=== PATIENT | female | born 1975 | race Caucasian/White ===

== ENCOUNTER 2018-02-21 06:56 | Emergency (ER) | payer BC ==
--- OUTSIDE RECORDS SUMMARY | 2018-02-21 06:59 | XMS REPORT ---
:1975 Author Organization [facility] Address [address] [place] [address] Dr. Black[address] [place] [id number] Care Team Providers Name Role Phone Unavailable Unavailable Unavailable Payers Payer Name Policy Type Policy Number Effective Date Expiration Date Problems This patient has no known problems. Allergies, Adverse Reactions, Alerts This patient has no known allergies or adverse reactions. Medications This patient has no known medications.
--- OUTSIDE RECORDS SUMMARY | 2018-02-21 06:59 | XMS REPORT ---
:1975 Author Organization [employer] Care Team Providers Name Role Phone Oly Matthews Provider Role Unavailable Allergies, Adverse Reactions, Alerts Substance Reaction Event Type N.K.D.A. Info Not Available Non Drug Allergy Problems Problem Type Condition Code Onset Dates Condition Status Assessment History of heart murmur in Z86.79 Active childhood Assessment Elevated BP without diagnosis of R03.0 Active hypertension Assessment Tachycardia R00.0 Active Assessment Lipid screening Z13.220 Active Assessment Liver lesion K76.9 Active Problem Liver lesion K76.9 Active Problem Elevated BP without diagnosis of R03.0 Active hypertension Problem Tachycardia R00.0 Active Assessment Uncontrolled type 2 diabetes E11.65 Active mellitus with hyperglycemia Problem History of heart murmur in Z86.79 Active childhood Problem Uncontrolled type 2 diabetes E11.65 Active mellitus with hyperglycemia Medications Medication Code Code Instructions Start End Status Dosage System Date Date [facility] 99642567115 10mg Orally Kinsey Active 1 tablet Once daily 2018 Trulicity [facility] 27637989633 1.5mg/0.5ml SQ Active 1 injection once a week Metformin HCl ND 86075446130 1000 MG Orally Active 1 tablet Once a day with a meal Lyrica NDC 80130081147 75 MG Orally Active 1 capsule Once a day Blood Glucose NDC 0 as directed Feb 12, Active as directed Test Strip Test BS once 2018 (DISPENSE daily BLOOD GLUCOSE TEST STRIPS FORMULARY TO INSURANCE) Blood Glucose NDC 0 as directed Feb 12, Active as directed Monitor Test BS once 2018 (DISPENSE daily BLOOD GLUCOSE MONITOR FORMULARY TO INSURANCE) Lancets ND 04817019883 - as directed Feb 12, Active as directed Test BS once 2018 (dispense daily lancets formulary to insurance) Gabapentin [facility] [address]-60 100 MG Orally Active 1 capsule at bedtime Results No Known Results Summary Purpose eClinicalWorks Submission
[2018-02-21 08:51] LABS: Absolute Lymphocytes (CBC) 2.4 K/uL (0.7-4.9); Absolute Monocytes 0.6 K/uL (0.1-1.3); Absolute Neutrophil 6.4 K/uL (1.8-8.0); Basophils % 0.8 % (0-1.3); Eosinophils % 1.5 % (0-4.4); Hematocrit 41.3 % (36.0-45.0); Lymphocytes % 25.2 % (15.3-44.8); MCV 88.7 fL (80-100); MPV 9.3 fL (7.6-11.3); RBC Red Blood Cell Count 4.65 M/uL (3.86-4.86)
[2018-02-21 08:56] LABS: ALT/SGPT 22 U/L (12-78); AST/SGOT 10 U/L (15-37); Albumin 3.9 g/dL (3.4-5.0); Alkaline Phosphatase 43 U/L (45-117); BUN Blood Urea Nitrogen 15 mg/dL (7-18); Bicarbonate 23 mmol/L (21-32); Bilirubin Direct 0.1 mg/dL (0-0.2); Bilirubin Total 0.4 mg/dL (0.2-1.0); Glucose Level 226 mg/dL (74-106); Lipase 221 U/L (73-393); Protein, Total 7.4 g/dL (6.4-8.2); Sodium Level 137 mmol/L (136-145)
[2018-02-21 09:43] LABS: Urine Blood TRACE (NEG); Urine Glucose 2+ (NEG); Urine Protein NEGATIVE (NEG); Urine Specific Gravity 1.015 (1.005-1.030); Urine pH 5.5 (5.0-7.0)
--- NOTE | 2018-02-21 10:00 | RAD REPORT ---
EXAM DESCRIPTION: CT - Abdomen Pelvis W Contrast - 02/21/2018 9:29 am CLINICAL HISTORY: Abdominal pain, right lower quadrant pain COMPARISON: February 2017 imaging TECHNIQUE: Biphasic, helical CT imaging of the abdomen and pelvis was performed following 100 ml non -ionic IV contrast. Oral contrast was given. All CT scans are performed using dose optimization technique as appropriate and may include automated exposure control or mA/KV adjustment according to patient size. FINDINGS: No suspicious findings in the lung bases. The liver, spleen, and pancreas show no suspicious findings. Cholecystectomy clips are present. No bi liary tree dilatation. Symmetric renal function is seen with no hydronephrosis or suspicious renal mass. No pyelonephritis o r acute renal parenchymal process. No urinary bladder abnormality. No acute uterine finding. Small ut erine fibroids are identified similar to comparison. IUD has been placed since the prior study. No ac chris ovarian process. No dilated bowel loops or bowel wall thickening. No appendicitis. Large amount of stool is present fi lling but not dilating the entirety of the colon. No free air, free fluid or inflammatory stranding. A few small mesenteric lymph nodes are present. A very small fat only umbilical hernia is present. No mass or bulky lymphadenopathy. No adrenal abnormality. No suspicious bony findings. IMPRESSION: No appendicitis or other acute finding in the right lower quadrant. Patient has a large amount of stool filling but not dilating the entirety of the colon. Small nonspe cific mesenteric lymph nodes are present. No acute GI process otherwise noted. 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 Cholecystectomy changes.
--- NOTE | 2018-02-21 10:28 | ER ---
Nurse's Notes [facility] Name: Rachel Arroyo Age: 42 yrs Sex: Female : 1975 Arrival Date: 02/21/2018 Time: 06:58 Bed 13 Private MD: Oly Matthews Diagnosis: Radiculopathy, lumbar region Presentation: 02/21 07:08 Presenting complaint: Patient states: lower back pain radiating down right leg that aa5 began on Friday. Pt also reports numbness to funmilayo little fingers and ring fingers. Pt states "I don't know if it's because of the way I sleep or because I sit a lot at work". Transition of care: patient was not received from another setting of care. Onset of symptoms was January 2018. Risk Assessment: Do you want to hurt yourself or someone else? Patient reports no desire to harm self or others. Initial Sepsis Screen: Does the patient meet any 2 criteria? No. Patient's initial sepsis screen is negative. Does the patient have a suspected source of infection? No. Patient's initial sepsis screen is negative. Care prior to arrival: None. 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 - Social history:: Smoking status: Patient/guardian denies using tobacco. - Ebola Screening: : No symptoms or risks identified at this time. Screenin:10 Abuse screen: Denies threats or abuse. Nutritional screening: No deficits noted. aa5 Tuberculosis screening: No symptoms or risk factors identified. Fall Risk None identified. Assessment: 07:10 General: Appears uncomfortable, Behavior is calm, cooperative. Pain: Complains of pain aa5 in left low back and right low back Pain radiates to right leg Pain currently is 8 out of 10 on a pain scale. Quality of pain is described as sharp, shooting, Pain began 5 days ago. Neuro: Level of Consciousness is awake, alert, obeys commands, Oriented to person, place, time, situation. Cardiovascular: Heart tones S1 S2 present Rhythm is regular. Respiratory: Airway is patent Respiratory effort is even, unlabored, Respiratory pattern is regular, symmetrical. GI: No signs and/or symptoms were reported involving the gastrointestinal system. : No signs and/or symptoms were reported regarding the genitourinary system. Denies burning with urination, inability to void, urinary frequency, urgency. EENT: No signs and/or symptoms were reported regarding the EENT system. Derm: Skin is pink, warm \\T\\ dry. Musculoskeletal: Range of motion: intact in all extremities, Pt states "my fingers were a numb earlier today but now they are not". 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 Pt states "maybe is the way I slept or something". 09:21 Reassessment: pt wheeled to CT via wheelchair. em 10:22 Reassessment: Patient appears in no apparent distress at this time. Patient and/or em family updated on plan of care and expected duration. Pain level reassessed. Patient is alert, oriented x 3, equal unlabored respirations, skin warm/dry/pink. 10:40 Reassessment: Patient is alert, oriented x 3, equal unlabored respirations, skin aa5 warm/dry/pink. Vital Signs: 07:10 BP 126 / 83; Pulse 94; Resp 16 S; Temp 97.4(TE); Pulse Ox 98% on R/A; Weight 74.84 kg aa5 (R); Height 5 ft. 6 in. (167.64 cm) (R); Pain 8/10; 07:10 Body Mass Index 26.63 (74.84 kg, 167.64 cm) aa5 ED Course: 06:58 Patient arrived in ED. am2 06:59 Oly Matthews MD is Private Physician. am2 07:09 Triage completed. aa5 07:09 Arm band placed on. aa5 07:09 Patient has correct armband on for positive identification. Bed in low position. Call aa5 light in reach. Side rails up X 1. 07:17 Himanshu Daniel LVN is Primary Nurse. em 07:18 Martin Bragg PA is PHCP. jr8 07:18 Tremaine Irwin MD is Attending Physician. jr8 09:02 Initial lab(s) drawn, by me, sent to lab. Urine collected: clean catch specimen, clear. mh5 Inserted saline lock: 22 gauge in right antecubital area, using aseptic technique. Blood collected. 09:03 Placed in gown. Warm blanket given. Pulse ox on. NIBP on. 5 09:03 Urine --Ancillary Sent. 5 09:03 Urine Dipstick-Ancillary Sent. 5 09:04 Urine --Ancillary (enter results) Sent. mh5 09:04 Urine Dipstick--Ancillary (enter results) Sent. 5 09:28 CT completed. Patient moved to CT via wheelchair. Patient moved back from CT. cw1 09:30 CT Abd/Pelvis - W/Contrast In Process Unspecified. EDMS 10:27 Oly Matthews MD is Referral Physician. jr8 10:40 No provider procedures requiring assistance completed. aa5 10:40 IV discontinued, intact, bleeding controlled, No redness/swelling at site. Pressure aa5 dressing applied. Administered Medications: No medications were administered Outcome: 10:28 Discharge ordered by . jr8 10:40 Discharged to home ambulatory. aa5 10:40 Condition: stable 10:40 Discharge instructions given to patient, Instructed on discharge instructions, follow up and referral plans. medication usage, Demonstrated understanding of instructions, follow-up care, medications, Prescriptions given X 3. 10:42 Patient left the ED. em Signatures: Dispatcher [employer] EDOH Himanshu Daniel, MACHINE HOOP MAKER MACHINE HOOP MAKER Mary Sandoval, RN RN aa5 Rachel Gonzalez cw1 Martin Bragg PA PA jr8 Martinez, Maria Yana Mcclure 2
--- NOTE | 2018-02-21 10:28 | EDPHYS ---
Physician Documentation [facility] Name: Rachel Arroyo Age: 42 yrs Sex: Female : 1975 Arrival Date: 02/21/2018 Time: 06:58 Bed 13 Private MD: Oly Matthews ED Physician Tremaine Irwin HPI: 02/21 09:53 This 42 yrs old Female presents to ER via Ambulatory with complaints of Low jr8 Back Pain - rad to leg, Numbness - fingers. 09:53 The patient presents with pain that is acute, with no known mechanism of injury. The jr8 symptoms are located in the low back. radiation down right leg. Onset: The symptoms/episode began/occurred acutely, yesterday. Modifying factors: The patient symptoms are alleviated by nothing, the patient symptoms are aggravated by any movement. Associated signs and symptoms: The patient has no apparent associated signs or symptoms. Severity of symptoms: At their worst the symptoms were mild, in the emergency department the symptoms are unchanged. The patient has not experienced similar symptoms in the past. The patient has not recently seen a physician. 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 - Social history:: Smoking status: Patient/guardian denies using tobacco. - Ebola Screening: : No symptoms or risks identified at this time. ROS: 09:53 Eyes: Negative for injury, pain, redness, and discharge, ENT: Negative for injury, jr8 pain, and discharge, Neck: Negative for injury, pain, and swelling, Cardiovascular: Negative for chest pain, palpitations, and edema, Respiratory: Negative for shortness of breath, cough, wheezing, and pleuritic chest pain, Abdomen/GI: Negative for abdominal pain, nausea, vomiting, diarrhea, and constipation, MS/Extremity: Negative for injury and deformity, Skin: Negative for injury, rash, and discoloration, Neuro: Negative for headache, weakness, numbness, tingling, and seizure. 09:53 Back: Positive for pain at rest, pain with movement, radiated pain. Exam: 09:53 Eyes: Pupils equal round and reactive to light, extra-ocular motions intact. Lids and jr8 lashes normal. Conjunctiva and sclera are non-icteric and not injected. Cornea within normal limits. Periorbital areas with no swelling, redness, or edema. ENT: Nares patent. No nasal discharge, no septal abnormalities noted. Tympanic membranes are normal and external auditory canals are clear. Oropharynx with no redness, swelling, or masses, exudates, or evidence of obstruction, uvula midline. Mucous membranes moist. Neck: Trachea midline, no thyromegaly or masses palpated, and no cervical lymphadenopathy. Supple, full range of motion without nuchal rigidity, or vertebral point tenderness. No Meningismus. Cardiovascular: Regular rate and rhythm with a normal S1 and S2. No gallops, murmurs, or rubs. Normal PMI, no JVD. No pulse deficits. Respiratory: Lungs have equal breath sounds bilaterally, clear to auscultation and percussion. No rales, rhonchi or wheezes noted. No increased work of breathing, no retractions or nasal flaring. Skin: Warm, dry with normal turgor. Normal color with no rashes, no lesions, and no evidence of cellulitis. MS/ Extremity: Pulses equal, no cyanosis. Neurovascular intact. Full, normal range of motion. Neuro: Awake and alert, GCS 15, oriented to person, place, time, and situation. Cranial nerves II-XII grossly intact. Motor strength 5/5 in all extremities. Sensory grossly intact. Cerebellar exam normal. Normal gait. 09:53 Abdomen/GI: Inspection: abdomen appears normal, Bowel sounds: active, all quadrants, Palpation: soft, in all quadrants, moderate abdominal tenderness, in the anterior aspect of right lateral abdomen and right lower quadrant, mass, is not appreciated, rebound tenderness, is not appreciated, voluntary guarding, is not appreciated, involuntary guarding, is not appreciated, no appreciated organomegaly, Indicators: McBurney's point is tender, Stern's sign is negative, Rovsing's sign is negative, Obturator sign is negative, Liver: no appreciated palpable abnormalities, tenderness, is not appreciated. Vital Signs: 07:10 BP 126 / 83; Pulse 94; Resp 16 S; Temp 97.4(TE); Pulse Ox 98% on R/A; Weight 74.84 kg aa5 (R); Height 5 ft. 6 in. (167.64 cm) (R); Pain 12/05; 07:10 Body Mass Index 26.63 (74.84 kg, 167.64 cm) aa5 MDM: 07:18 Patient medically screened. jr8 Data reviewed: vital signs, nurses notes, lab test result(s), radiologic studies, CT jr8 scan. Data interpreted: Pulse oximetry: on room air is 98 %. Interpretation: normal. Counseling: I had a detailed discussion with the patient and/or guardian regarding: the historical points, exam findings, and any diagnostic results supporting the discharge/admit diagnosis, lab results, radiology results, the need for outpatient follow up, a family practitioner, to return to the emergency department if symptoms worsen or persist or if there are any questions or concerns that arise at home. : Differential diagnosis: strain, fracture, sciatica, Herniated disc UTI, appendicitis, jr8 pyelonephritis. 02/21 07:39 Order name: Basic Metabolic Panel; Complete Time: 08:57 jr8 02/21 07:39 Order name: CBC with Diff; Complete Time: 09:01 jr8 02/21 07:39 Order name: Creatinine for Radiology; Complete Time: 08:57 jr8 02/21 07:39 Order name: Hepatic Function; Complete Time: 08:57 jr8 02/21 07:39 Order name: Lipase; Complete Time: 08:57 jr8 02/21 08:29 Order name: Urine Dipstick--Ancillary (enter results) eb 02/21 07:39 Order name: IV Saline Lock; Complete Time: 09:20 jr8 02/21 07:39 Order name: Labs collected and sent; Complete Time: 09:20 jr8 02/21 07:39 Order name: Urine Test (obtain specimen); Complete Time: 09:04 jr8 02/21 07:39 Order name: Urine Dipstick-Ancillary (obtain specimen); Complete Time: 09:04 jr8 02/21 08:29 Order name: Urine --Ancillary (enter results) eb 02/21 08:30 Order name: Urine Dipstick-Ancillary; Complete Time: 09:53 EDMS 02/21 08:30 Order name: Urine --Ancillary; Complete Time: 09:53 EDMS 02/21 08:58 Order name: CT Abd/Pelvis - W/Contrast; Complete Time: 10:25 jr8 Administered Medications: No medications were administered Disposition: 18:01 Co-signature as Attending Physician, Tremaine Irwin MD. Disposition: 02/21/18 10:28 Discharged to Home. Impression: Radiculopathy, lumbar region. - Condition is Stable. - Discharge Instructions: Lumbosacral Radiculopathy, Back Exercises, [id number]. - Prescriptions for Ibuprofen 800 mg Oral Tablet - take 1 tablet by ORAL route every 12 hours As needed take with food; 20 tablet. Cyclobenzaprine 10 mg Oral Tablet - take 1 tablet by ORAL route every 8 hours As needed; 30 tablet. Tramadol 50 mg Oral Tablet - take 1 tablet by ORAL route every 8 hours as needed; 12 tablet. - Medication Reconciliation Form, Thank You Letter, Antibiotic Education, Prescription Opioid Use form. - Follow up: Oly Matthews MD; When: 5 - 6 days; Reason: Recheck today's complaints, Continuance of care, Re-evaluation by your physician. - Problem is new. - Symptoms have improved. Signatures: Dispatcher [employer] EDTN Himanshu Daniel, IMPACT RETAIL SERVICE MERCHANDISER IMPACT RETAIL SERVICE MERCHANDISER Mary Archer, RN RN aa5 Martin Bragg PA PA jr8 Tremaine Irwin MD MD Corrections: (The following items were deleted from the chart) 10:42 10:28 02/21/2018 10:28 Discharged to Home. Impression: Radiculopathy, lumbar region. em Condition is Stable. Forms are Medication Reconciliation Form, Thank You Letter, Antibiotic Education, Prescription Opioid Use. Follow up: Oly Matthews; When: 5 - 6 days; Reason: Recheck today's complaints, Continuance of care, Re-evaluation by your physician. Problem is new. Symptoms have improved. jr8
== END 2018-02-21 10:42 | disposition home or self-care (01) ==
LOC: ER 06:56
DX: M54.16 Radiculopathy, lumbar region (principal); I10 Essential (primary) hypertension
CPT/HCPCS: 36415; 74177; 80048; 80076; 81003; 81025; 83690; 85025; 99284; Q9967

== ENCOUNTER 2020-12-13 15:57 | Emergency (ER) | payer BC ==
--- OUTSIDE RECORDS SUMMARY | 2020-12-13 16:00 | XMS REPORT | Continuity of Care Document ---
:1975 Author Organization [facility] t Address [address] [place] [address] Care Team Providers Name Role Phone Asked, Pcp Primary Care Physician Unavailable Doctor Unassigned, Name Attending Clinician Unavailable Isra PENA SHyun Attending Clinician Fannie López Attending Clinician Payers Payer Name Policy Type Policy Effective Date Expiration Date Sour ce Number [id number] OUT OF [id number] 2018 [facility] 00:00[facility]00 [facility] 79 2018-Pre sentPPO Problems Condition Condition Condition Status Onset Resolution Last Treating Co mments Source Name Details Category Date Date Treatment Clinician Date Hyperlipid Hyperlipid Problem Active M [facility] emia emia 2-14 da 00:00: Medical 00 Group Essential Essential Problem Active [facility] hypertensi Hypertensi 2-14 da on on 00:00: Medical 00 Group Type 2 Type 2 Problem Active [facility] diabetes Diabetes da mellitus [facility] Acute Acute Problem Active [facility] bronchitis Bronchitis [facility] Ankle pain Ankle Pain Problem Active [facility] Fatigue Fatigue Problem Active [facility] History of History of Problem Active [facility] murmur in murmur in Alfredo juan childhood childhood l [facility] Elevated Elevated Problem Active [facility] BP without BP without Natalie kes - diagnosis diagnosis Alfredo juan of of l hypertensi hypertensi Ou tpati on on ent Clinics Tachycardi Tachycardi Problem Active [facility] Liver Liver Problem Active [facility] lesion lesion [facility] Uncontroll Uncontroll Diagnosis Active [facility] ed type 2 ed type 2 Luke s - diabetes diabetes Memori a mellitus mellitus l with with Outpati hyperglyce hyperglyce en t [facility] Hyponatrem Hyponatrem Problem Active [facility] ia ia [facility] Difficulty Difficulty Problem Active [facility] sleeping sleeping [facility] Hyperlipid Hyperlipid Problem Active C [facility] emia, emia, [facility] - unspecifie unspecifie Me moria d d l hyperlipid hyperlipid Ou tpati emia type emia type ent Clinics Left leg Left leg Problem Active [facility] Change in Change in Problem Active [facility] bowel bowel [facility] - habits habits [facility]oria l [facility] Left leg Left leg Problem Active [facility] swelling swelling [facility] Essential Essential Problem Active [facility] hypertensi hypertensi Natalie kes - on on [facility]oria l [facility] Abdominal Abdominal Problem Active [facility] pain, pain, [facility] - unspecifie unspecifie Me moria d d l abdominal abdominal Outp ati location location ent Clinics Allergies, Adverse Reactions, Alerts Allergy Allergy Status Severity Reaction(s) Onset Inactive Treating Comm ents Source Name Type Date Date Clinician Gabapent Allergy Active [facility] Lyrica Allergy Active [facility] Social History Social Habit Start Date Stop Date Quantity Comments Source Sex Assigned At [birth year] [facility] 00:00:00 00:00:00 Smoking Status Start Date Stop Date Source Unknown if ever smoked [facility] Never Smoker [facility] Medications Ordered Filled Start Stop Current Ordering Indication Dosage Frequency Signature Comments Components Source Medication Medication Date Date Medication? Clinician (SIG) Name Name GlipiZIDE GlipiZIDE 2018- Yes Oly [address] [facility]24 [facility] - 00:[facility]: Mem[facility] 00 l Outpati ent Clinics atorvastati atorvastati No 1 Q1D atorvastat [facility] n 10 mg n 10 mg in 10 mg da tablet Take tablet Take tablet Medical 1 tablet 1 tablet Take 1 Group every day every day tablet by oral by oral every day route. route. by oral route. glipizide glipizide No 1 Q1D glipizide [facility] 10 mg 10 mg 10 mg da tablet Take tablet Take tablet Medical 1 tablet 1 tablet Take 1 Group every day every day tablet by oral by oral every day route. route. by oral route. metformin metformin No 1 Q1D metformin [facility] 1,000 mg 1,000 mg 1,000 mg da tablet Take tablet Take tablet Medical 1 tablet 1 tablet Take 1 Group every day every day tablet by oral by oral every day route. route. by oral route. norethindro norethindro No 2 BID norethindr [place] ne 5 mg ne 5 mg one 5 mg da tablet Take tablet Take tablet Medical 2 tablets 2 tablets Take 2 [place] up twice a day twice a day tablets by oral by oral twice a route. route. day by oral route. pantoprazol pantoprazol No 1 Q1D pantoprazo [place] e 40 mg e 40 mg le 40 mg da tablet,shiva tablet,shiva tablet,del Medical yed release yed release ayed G roup Take 1 Take 1 release tablet tablet Take 1 every day every day tablet by oral by oral every day route. route. by oral route. Immunizations Ordered Immunization Filled Immunization Date Status Commen ts Source Name Name pneumococcal pneumococcal 2016-08-22 Completed Queenie polysaccharide PPV23 polysaccharide PPV23 11:04:00 Medical Group Vital Signs Vital Name Observation Time Observation Value Comments Source BP Diastolic 2018-07-07 00:00:00 89 mm[Hg] [facility] Height 2018-07-07 00:00:00 66.5 [in_i] [facility] BMI (Body Mass 2018-07-07 00:00:00 25.8 kg/m2 [facility] Group BP Systolic 2018-07-07 00:00:00 131 mm[Hg] [facility] Body Weight 2018-07-07 00:00:00 2599 [oz_av] [facility] Procedures Procedure Date / Time Performing Clinician Source Performed CT ABD/PELVIC EXTERNAL 2020-05-01 01:00:[address] [facility] STUDY Cholecystectomy 2017-03-03 00:00:00 [facility] Tubal Ligation [facility] Plan of Care Planned Activity Planned Date Details Comments Source Diagnostic Test 2018-07-07 rapid flu (A+B) [code [facility] Pending 00:00:00 = rapid flu (A+B)] Group Future Scheduled Test COVID-19 VACCINE (1) [facility] [code = COVID-19 VACCINE (1)] Future Scheduled Test Hepatitis C screening [facility] (procedure) [code = 956214576] Future Scheduled Test Screening for [facility] malignant neoplasm of cervix (procedure) [code = 045533182] Future Scheduled Test INFLUENZA VACCINE [facility] [code = INFLUENZA VACCINE] Future Scheduled Test DIABETES: RETINAL EYE [facility] EXAM [code = DIABETES: RETINAL EYE EXAM] Future Scheduled Test DIABETIC FOOT EXAM [facility] [code = DIABETIC FOOT EXAM] Future Scheduled Test URINE MICROALBUMIN [facility] [code = URINE MICROALBUMIN] Instructions [facility] Encounters Start End Encounter Admission Attending Care Care Encounter Source Date/Time Date/Time Type Type Clinicians Facility Department ID 2020-11-16 2020-11-16 Orders Doctor NICHELLE [id number] 00:00:00 00:00:00 Only Unassigned, ALLIE [id number] [place] [facility] [id number] [id number] 2020-07-14 2020-07-14 Travel 1.2.840.1 [id number] Methodi 00:00:00 00:00:[address] 3.430.2.7 0.2.7.3.698 Ho spita .3.860077 084.8 l .8 2020-07-06 2020-07-06 Travel 1.2.840.1 [id number] [facility] 00:00:00 00:00:[address] 3.430.2.7 0.2.7.3.698 Ho spita .3.677636 084.8 l .8 2020-07-06 2020-07-06 Transcribe [facility], 1.2.840.1 [id number] Methodi 00:00:00 00:00:00 Orders Mehrdad Ley [id number] 3.430.2.7 Hospit a .3.541438 l .8 2020-06-16 2020-06-16 [facility], 12.840.1 [id number] Methodi 11:22:06 23:59:00 Encounter Mehrdad Ley [id number] 3.430.2.7 Hospit a .3.952796 l .8 2020-06-16 2020-06-16 Outpatient [facility] [id number] [address] [place] [address] 00:00:00 00:00:[address] 2020-04-30 2020-04-30 Emergency [place] [id number] 17:55:00 20:37:00 David Kimball 350.1.13.10 [place] 4.2.7.2.686 [place] [id number] 2018-10-07 2018-10-07 [facility] [id number] 11:03:00 11:03:00 t [facility] 2018-09-09 2018-09-09 [facility] [id number] 08:44:00 08:44:00 t [facility] Medicine Outpati ent Clinics 2018-09-04 2018-09-04 [facility] [id number] 11:43:00 11:43:00 t [facility] Outpati ent Clinics 2018-08-17 2018-08-17 [facility] [id number] 08:38:00 08:38:[address] [facility] Medicine Outpati ent Clinics 2018-07-07 2018-07-07 Susan [facility] [place] - [id number] M haydengor 00:00:00 00:00:00 Discovery rylee Hernandez PSYCHIATRIC MENTAL HEALTH NURSE: [address] [facility] [place], [place] - [address], [facility], [place] [address] , Ph. 2018-05-25 2018-05-25 [facility] [id number] 08:20:00 08:20:[address] [facility] Medicine Outpati ent Clinics 2018-05-21 2018-05-21 [facility] [id number] 08:45:00 08:45:[address] [facility] Medicine Outpati ent Clinics 2018-02-12 2018-02-12 [facility] [id number] 15:00:00 15:00:00 [facility] Outpati ent Clinics Results Test Description Test Time Test Comments Results Result Sour e Comments CT Abd/Pelvic 2020-06-16 This exam was not Meth odist External Study 18:02:37 acquired at a [facility] facility and has not been interpreted by a [facility] Provider. The exam was imported into our imaging system.
[2020-12-13 16:41] LABS: Absolute Lymphocytes (CBC) 2.6 K/uL (0.7-4.9); Basophils % 0.2 % (0-1.3); Hematocrit 43.2 % (36.0-45.0); Lymphocytes % 31.1 % (15.3-44.8); MPV 8.6 fL (7.6-11.3); RBC Red Blood Cell Count 4.71 M/uL (3.86-4.86)
[2020-12-13 16:56] LABS: BUN Blood Urea Nitrogen 18 mg/dL (7-18); Bicarbonate 24 mmol/L (21-32); Glucose Level 129 mg/dL (74-106); Potassium 3.8 mmol/L (3.5-5.1); Sodium Level 135 mmol/L (136-145)
--- NOTE | 2020-12-13 17:08 | ER ---
Nurse's Notes [facility] Name: Rachel Arroyo Age: 45 yrs Sex: Female : 1975 Arrival Date: 12/13/2020 Time: 15:59 Bed Waiting Private MD: Diagnosis: Hyperglycemia, unspecified Presentation: 12/13 16:06 Chief complaint: Patient states: abd pain and fatigue x 1 month. Pt's PCP told her that ss her lab work was abnormal and that she needed to be seen and treated for possible DKA. Coronavirus screen: Client denies travel out of the [place] in the last 14 days. Ebola Screen: Patient denies exposure to infectious person. Patient denies travel to an Ebola-affected area in the 21 days before illness onset. Initial Sepsis Screen: Does the patient meet any 2 criteria? No. Patient's initial sepsis screen is negative. Does the patient have a suspected source of infection? No. Patient's initial sepsis screen is negative. Risk Assessment: Do you want to hurt yourself or someone else? Patient reports no desire to harm self or others. Onset of symptoms is unknown. 16:06 Method Of Arrival: Ambulatory ss 16:06 Acuity: JULISSA 3 ss Historical: - Allergies: 16:11 No Known Allergies; ss - PMHx: 16:11 Diabetes - NIDDM; Hyperlipidemia; Hypertension; ss - PSHx: 16:11 Cholecystectomy; ss - Immunization history:: Client reports receiving the 1st dose of the Covid vaccine. - Social history:: Smoking status: Patient denies any tobacco usage or history of. Vital Signs: 16:06 BP 146 / 96; Pulse 115; Resp 17; Temp 98.3(TE); Pulse Ox 97% on R/A; Weight 78.47 kg; ss Height 5 ft. 6 in. (167.64 cm); Pain 4/10; 16:06 Body Mass Index 27.92 (78.47 kg, 167.64 cm) ED Course: 15:59 Patient arrived in ED. ds1 16:10 Triage completed. ss 16:11 Arm band placed on right wrist. ss 16:19 [facility]le Gibson [facility]C [facility] kb 16:19 Octaviano Quezada MD is Attending Physician. kb Administered Medications: 17:42 Drug: NS 0.9% 1000 ml Route: IV; Rate: 1000 ml; Site: right antecubital; kb Outcome: 17:08 Discharge ordered by . jammie 18:25 Patient left the ED. jammie Signatures: Angle Gibson FNP-C FNP-Jeannie Ward ds1 Marika Inman, RN RN ss
--- NOTE | 2020-12-13 17:09 | EDPHYS ---
Physician Documentation [facility] Name: Rachel Arroyo Age: 45 yrs Sex: Female : 1975 Arrival Date: 12/13/2020 Time: 15:59 Bed Waiting Private MD: ED Physician Octaviano Quezada HPI: 12/14 00:11 This 45 yrs old Female presents to ER via Ambulatory with complaints of kb Abnormal Lab Results - Poss DKA. 00:12 Pt states she had routine blood work done by her PCP. Was called today and told to come kb to the ER for possible DKA. Patient denies any symptoms. Onset: The symptoms/episode began/occurred today. Severity of symptoms: At their worst the symptoms were very mild in the emergency department the symptoms are unchanged. The patient has not experienced similar symptoms in the past. The patient has been recently seen by a physician:. Historical: - Allergies: 12/13 16:11 No Known Allergies; ss - PMHx: 16:11 Diabetes - NIDDM; Hyperlipidemia; Hypertension; ss - PSHx: 16:11 Cholecystectomy; ss - Immunization history:: Client reports receiving the 1st dose of the Covid vaccine. - Social history:: Smoking status: Patient denies any tobacco usage or history of. ROS: 12/14 00:12 Constitutional: Negative for fever, chills, and weight loss. kb All other systems are negative. Exam: 00:12 Constitutional: This is a well developed, well nourished patient who is awake, alert, kb and in no acute distress. Head/Face: Normocephalic, atraumatic. ENT: Moist Mucous membranes Cardiovascular: Regular rate and rhythm with a normal S1 and S2. No gallops, murmurs, or rubs. No pulse deficits. Respiratory: Respirations even and unlabored. No increased work of breathing, no retractions or nasal flaring. Abdomen/GI: Soft, non-tender. No distention Skin: Warm, dry with normal turgor. Normal color. MS/ Extremity: Pulses equal, no cyanosis. Neurovascular intact. Full, normal range of motion. Neuro: Awake and alert, GCS 15, oriented to person, place, time, and situation. Moves all extremities. Normal gait. Psych: Awake, alert, with orientation to person, place and time. Behavior, mood, and affect are within normal limits. Vital Signs: 12/13 16:06 BP 146 / 96; Pulse 115; Resp 17; Temp 98.3(TE); Pulse Ox 97% on R/A; Weight 78.47 kg; ss Height 5 ft. 6 in. (167.64 cm); Pain 4/10; 16:06 Body Mass Index 27.92 (78.47 kg, 167.64 cm) ss Procedures: 17:42 Peripheral line: by aseptic technique a peripheral line was placed in the right antecubital vein. MDM: 16:19 Patient medically screened. kb 12/14 00:11 Data reviewed: vital signs, nurses notes. Data interpreted: Pulse oximetry: on room air kb is 97 %. Interpretation: normal. Counseling: I had a detailed discussion with the patient and/or guardian regarding: the historical points, exam findings, and any diagnostic results supporting the discharge/admit diagnosis, lab results, the need for outpatient follow up, a family practitioner, to return to the emergency department if symptoms worsen or persist or if there are any questions or concerns that arise at home. 12/13 16:19 Order name: CBC with Diff kb 12/13 16:19 Order name: Basic Metabolic Panel 12/13 16:19 Order name: Acetone, Serum; Complete Time: 17:07 kb 12/13 16:20 Order name: CBC with Automated Diff; Complete Time: 16:44 EDMS 12/13 16:20 Order name: Basic Metabolic Panel; Complete Time: 17:07 EDMS 12/13 16:28 Order name: Glucose, Ancillary Testing; Complete Time: 16:31 EDMS 12/13 16:19 Order name: IV Start kb Administered Medications: 12/13 17:42 Drug: NS 0.9% 1000 ml Route: IV; Rate: 1000 ml; Site: right antecubital; Disposition: 18:56 Co-signature as Attending Physician, Octaviano Quezada MD I agree with the assessment and rn plan of care. Attestation: The patient's history, exam findings, diagnostics, and a summary of any interventions or procedures was reviewed in detail with Angle LEBLANC. Disposition Summary: 12/13/20 17:08 Discharge Ordered Location: Home kb Condition: Stable kb Diagnosis - Hyperglycemia, unspecified kb Followup: kb - With: Emergency Department - When: As needed - Reason: Worsening of condition Followup: kb - With: Private Physician - When: 2 - 3 days - Reason: Recheck today's complaints, Continuance of care, Re-evaluation by your physician Discharge Instructions: - Discharge Summary Sheet kb - Hyperglycemia, [id number] kb Forms: - Medication Reconciliation Form kb - Thank You Letter kb - Antibiotic Education kb - Prescription Opioid Use kb Signatures: Dispatcher [employer] EDMS Angle Gibson, LUCIANO-C LUCIANO-Octaviano Dumas MD MD rn Marika Inman RN RN ss Corrections: (The following items were deleted from the chart) 17:08 17:08 Person with feared health complaint in whom no diagnosis is made kb kb
[2020-12-13] MEDS ORDERED: NA CHLORIDE 0.9% 1,000 ML ONE (17:55)
[2020-12-13 18:31] VITALS: BP 146/96; TEMP 98.3; O2SAT 97
== END 2020-12-13 18:25 | disposition home or self-care (01) ==
LOC: ER 15:57
PROC: 05HD33Z Insertion of Infusion Device into Right Cephalic Vein, Percutaneous Approach (ICD-10-PCS; principal; 2020-12-13)
DX: E11.65 Type 2 diabetes mellitus with hyperglycemia (principal); I10 Essential (primary) hypertension
CPT/HCPCS: 85025; 80048; 36415; 82010; 82947; 99282; 36569; J7030

== ENCOUNTER 2021-06-08 16:28 | Emergency (ER) | payer BC ==
--- OUTSIDE RECORDS SUMMARY | 2021-06-08 16:31 | XMS REPORT | Continuity of Care Document ---
:1975 Author Organization [facility] [place] t Address [address] [place] [address] Care Team Providers Name Role Phone Dingvitaliy Primary Care Physician Miguel Angel WOLF Attending Clinician Campbell Brown Attending Clinician Unavailable Doctor Unassigned, Name Attending Clinician Unavailable Isra PENA SHyun Attending Clinician Hossein WOLF B Attending Clinician Keith Chase Attending Clinician Unavailable Campbell Brown Admitting Clinician Unavailable Physician, Primary or Family Admitting Clinician Unavailabl e Payers Payer Name Policy Type Policy Effective Date Expiration Date Sour Number [id number] OUT OF [id number] 2018 [facility] 00:00:00 [facility] 79 2018-Pre sentPPO Problems Condition Condition Condition Status Onset Resolution Last Treating Co mments Source Name Details Category Date Date Treatment Clinician Date Hyperlipid Hyperlipid Problem Active [facility] em[facility] emia 2-14 da 00:00: Medical 00 Group Essential Essential Problem Active [facility] hypertensi Hypertensi 2-14 da on on 00:00: Medical 00 Group History of History of Problem Active [facility]ur in [facility] Elevated Elevated Problem [facility] BP without BP without Natalie kes - diagnosis diagnosis Alfredo juan of of l hypertensi hypertensi Ou tpati on on ent Clinics Tachycardi Tachycardi Problem Active [facility] Liver Liver Problem Active [facility] lesion [facility] Uncontroll Uncontroll Diagnosis Active [facility] ed type 2 ed type 2 [facility] - diabetes diabetes Memori a mellitus mellitus l with with Outpati hyperglyce hyperglyce en t [facility] Hyponatrem Hyponatrem Problem Active [facility] Difficulty Difficulty Problem Active [facility] sleeping sleeping [facility] Hyperlipid Hyperlipid Problem Active [facility] emia, emia, [facility] - unspecifie unspecifie Me moria d d l hyperlipid hyperlipid Ou tpati emia type emia type ent Clinics Left leg Left leg Problem Active [facility] Change in Change in Problem Active [facility] bowel bowel [facility] - habits habits [facility] l Out[facility] ent Clin[facility] Left leg Left leg Problem Active [facility] swelling swelling [facility] Essential Essential Problem Active [facility] hypertensi hypertensi Natalie kes - on on [facility] Abdominal Abdominal Problem Active [facility] pain, pain, [facility] - unspecifie unspecifie Me moria d d l abdominal abdominal Outp ati location location ent Clinics No known No known Disease Unive rs active active ity of problems problems [facility] Type 2 Type 2 Problem Active [facility] diabetes Diabetes da mellitus [facility] l [facility] Acute Acute Problem Active [facility] bronchitis [facility] Ankle pain Ankle Pain Problem Active [facility] Fatigue Fatigue Problem Active [facility] Allergies, Adverse Reactions, Alerts Allergy Allergy Status Severity Reaction(s) Onset Inactive Treating Comm ents Source Name Type Date Date Clinician Gabapent Allergy Active [facility] Lyrica Allergy Active [facility] to [facility]anc [facility] Social History Social Habit Start Date Stop Date Quantity Comments Source Exposure to Not sure [facility] SARS-CoV-2 (event) Medica l Branch Tobacco use and 2021-05-22 2021-05-22 Never used [facility] exposure 00:00:00 00:00:00 [facility] Branch Sex Assigned [birth year] [facility] 00:00:00 00:00:00 Medical Branch Smoking Status Start Date Stop Date Source Never Smoker [facility] Unknown if ever smoked [facility] Branch Medications Ordered Filled Start Stop Current Ordering Indication Dosage Frequency Signature Comments Components Source Medication Medication Date Date Medication? Clinician (SIG) Name Name Baltic-3-DHA Yes Take by Un geetha -EPA-Fish 1-25 mouth. ity of Oil (FISH 12:17: [place] OIL) 1,000 44 Medical mg (120 Branch mg-180 mg) Cap ergocalcife Yes Take by Un ge[facility]a rol, 1-25 mouth. ity of vitamin D2, 12:16: [place] (VITAMIN D 50 Medical ORAL) Branch melatonin Yes 10mg Take 10 mg Un geetha 10 mg Cap 1-25 by mouth ity of 00:00: daily. [place] 00 Medical Branch dulaglutide Yes [id number] 3mg inject 3 Univers (TRULICITY) 1-25 mg under ity of 3 mg/0.5 mL 00:00: [place] PnIj 00 weekly. Medical Branch flash Yes [id number] 1{each} 1 Each Un ge[place] glucose 1-25 daily. Use ity of scanning 00:00: [place]. [place] reader 00 E11.9 Medical (FREESTYLE Branch ELVER 2 READER) Misc flash Yes [id number] 1{each} Apply 1 U nivers glucose 1-25 Each to ity of sensor 00:00: skin every [place] (FREESTYLE 00 14 Medical ELVER 2 (fourteen) Branch SENSOR) Kit days. Change sensor every 14 days. Dx E11.9 blood sugar Yes [id number] Use daily Univers diagnostic 1-25 Dx E11.9 ity o f (ONETOUCH 00:00: [place] VERIO TEST 00 Medical STRIPS) Branch strip lancets Yes [id number] Use daily. Univers (ONE TOUCH 1-25 Dx E11.9 ity o f DELICA) 33 00:00: [place] gauge Misc 00 Medical Branch metFORMIN 2021-0 Yes [id number] 1000mg Take 1 Univers 1,000 mg 1-25 tablet by ity of tablet 00:00: mouth 2 [place] 00 (two) Medical times Branch daily with meals. Zinc 50 mg 0 Yes 50mg Take 50 mg U nivers Tab 1-25 by mouth ity of 00:00: daily. Medical Branch ascorbic 2021-0 Yes 500mg Take 1 Univer s acid, 1-25 tablet by ity of vitamin C, 00:00: mouth [place] (VITAMIN C) 00 daily. Medica l 500 mg Branch tablet soy 0 Yes 1{capsu Take 1 Univers isoflav-bco 1-25 le} capsule by it y of hosh-Cissus 00:00: mouth [place] devin 00 daily. Medical (ESTROVEN Branch WEIGHT MANAGEMENT) 56-40-300 mg Cap glipiZIDE 5 0 2021- No [id number] 5mg Take 1 Univers mg tablet 1-25 -11 tablet by ity of 00:00: 00:00 mouth [place] 00 :00 daily. Medical Branch enalapril 0 Yes 20mg Take 20 mg Un geetha 20 mg 1-20 by mouth ity of tablet 00:00: daily. Medical Branch fenofibrate 0 Yes 134mg Take 134 U nivers micronized 1-20 mg by ity of 134 mg 00:00: mouth [place] capsule 00 daily. Medical Branch venlafaxine 2020-04 Yes 37.5mg Take 37.5 Univers 37.5 mg 2-30 mg by ity of tablet 00:00: mouth [place] 00 daily. Medical Branch atorvastati 0 Yes Univer s n 10 mg 8-31 ity of tablet 00:00: [place] 00 Medical Branch omeprazole 2020-0 Yes Univers 40 mg 8-31 ity of capsule 00:00: [place] 00 Medical Branch escitalopra 2020-0 Yes Univer s m oxalate 8-24 ity of 20 mg 00:00: [place] tablet 00 Medical Branch montelukast 2020-0 Yes 10mg Take 10 mg Univers 10 mg 8-23 by mouth ity of tablet 00:00: daily. Medical Branch norethindro 2021-0 Yes 5mg Take 5 mg U nivers ne 5 mg 8-23 by mouth 3 ity of tablet 00:00: (three) [place] 00 times Medical daily. Branch enalapriL-h Yes 1{tbl} Take 1 Un geetha ydrochlorot 8-10 tablet by ity of hiazide 00:00: mouth [place] 10-25 mg 00 every Medical per tablet morning. Branc h dicyclomine Yes [id number] 10mg Take 1 Univers (BENTYL) 10 1-03 capsule by it y of mg capsule 00:00: [place] 4 [place] 00 (four) Medical times Branch daily as needed for Abdominal pain. ondansetron Yes [id number] 4mg Take 1 Univers 4 mg 1-03 tablet by ity of disintegrat 00:00: mouth [place] ing tablet 00 every 8 Medica l (eight) Branch hours as needed for Nausea and Vomiting (N/V). 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) Group BP Systolic 2018-07-07 00:00:00 131 mm[Hg] [facility] Body Weight 2018-07-07 00:00:00 2599 [oz_av] [facility] Procedures Procedure Date / Time Performing Clinician Source Performed CT ABD/PELVIC EXTERNAL 2020-05-01 01:00:00 Mehrdad Dhaliwal [facility] STUDY Cholecystectomy 2017-03-03 00:00:00 [facility] Tubal Ligation [facility] Plan of Care Planned Activity Planned Date Details Comments Source Diagnostic Test 2018-07-07 rapid flu (A+B) [code [facility] Pending 00:00:00 = rapid flu (A+B)] Group Future Scheduled Test DIABETES: RETINAL EYE [facility] EXAM [code = DIABETES: RETINAL EYE EXAM] Future Scheduled Test DIABETIC FOOT EXAM [facility] [code = DIABETIC FOOT EXAM] Future Scheduled Test URINE MICROALBUMIN [facility] [code = URINE MICROALBUMIN] Future Scheduled Test COVID-19 VACCINE (1) [facility] [code = COVID-19 VACCINE (1)] Future Scheduled Test Hepatitis C screening [facility] (procedure) [code = 517198265] Future Scheduled Test Screening for [facility] malignant neoplasm of cervix (procedure) [code = 275228182] Future Scheduled Test INFLUENZA VACCINE [facility] [code = INFLUENZA VACCINE] Instructions [facility] Encounters Start End Encounter Admission Attending Care Care Encounter Source Date/Time Date/Time Type Type Clinicians Facility Department ID 2021-06-07 2021-06-07 Telephone Miguel Angel PASANCHO [id number] Univers 00:00:00 00:00:00 [facility] [id number] it y of [place] 4.2.7.2.686 Onur as JOSEPHINE?BLEA [id number] Pr dictitus [address] MEDICAL OFFICE BUILDING 2021-04-26 2021-04-26 Outpatient TONEY Soria [facility] [id number] -20 [facility] 12:00:00 12:00:00 [place], [id number] [facility] [place] [facility] 2020-11-16 2020-11-16 Orders Doctor STEWARD [id number] 00:00:00 00:00:00 Only Unassigned, ALLIE 350.1.13.10 [place] [facility] [id number] [id number] 2020-07-14 2020-07-14 Travel 1.2.840.1 [id number] Methodi 00:00:00 00:00:[address] 3.430.2.7 0.2.7.3.698 Ho spita .3.724226 084.8 l .8 2020-07-06 2020-07-06 Travel 1.2.840.1 [id number] [id number] Methodi 00:00:00 00:00:[address] 3.430.2.7 0.2.7.3.698 Ho spita .3.936252 084.8 l .8 2020-07-06 2020-07-[address] [facility], 1.2.840.1 [id number] Methodi 00:00:00 00:00:00 Orders Mehrdad Ley [address]999.1.[address] 3.430.2.7 Hospit a .3.280876 l .8 2020-06-16 2020-06-16 [facility], 1.2.840.1 [id number] Methodi 11:22:06 23:59:00 Encounter Mehrdad Figueroa. 72110.1.[address] 3.430.2.7 Hospit a .3.981611 l .8 2020-04-30 2020-04-30 Emergency [facility] [id number] 17:55:00 20:37:00 David Kimball 350.1.13.10 [place] 4.2.7.2.686 [place] [id number] 2020-04-25 2020-04-25 Outpatient TONEY Soria [facility] [id number] -20 [facility] 12:00:00 12:00:00 Benny, [id number] [facility] [place] [facility] 2019-04-16 2019-04-16 Outpatient TONEY Chase [facility] [id number] -20 [facility] 12:00:00 12:00:00 Vivi [id number] [facility] 2018-10-07 2018-10-07 [facility] [id number] 11:03:00 11:03:00 [facility] Medicine l Medicine Outpati ent Clinics 2018-09-09 2018-09-09 [facility] [id number] 08:44:00 08:44:00 t [facility] Medicine l Medicine Outpati ent Clinics 2018-09-04 2018-09-04 [facility] [id number] 11:43:00 11:43:00 t [facility] Family Medicine l Medicine Outpati ent Clinics 2018-08-17 2018-08-17 [facility] [id number] 08:38:00 08:38:00 t [facility] Medicine l Medicine Outpati ent Clinics 2018-07-07 2018-07-07 [facility] [place] - [id number] Kalpesh reina 00:00:00 00:00:00 Discovery 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 2018-05-25 2018-05-25 [facility] [id number] 08:20:00 08:20:00 [facility] ent [facility] 2018-05-21 2018-05-21 [facility] [id number] 08:45:00 08:45:00 [facility] ent [facility] 2018-02-12 2018-02-12 [facility] [id number] 15:00:00 15:00:00 [facility] Results Test Description Test Time Test Comments Results Result [facility] Branch e Comments CT Abd/Pelvic 2020-06-16 This exam was not Meth odist External Study 18:02:37 acquired at a [facility] facility and has not been interpreted by a Syn[facility] Provider. The exam was imported into our imaging system.
--- NOTE | 2021-06-08 19:39 | ER ---
Nurse's Notes [facility] Name: Rachel Arroyo Age: 46 yrs Sex: Female : 1975 Arrival Date: 06/08/2021 Time: 16:31 Bed Waiting Private MD: Diagnosis: Presentation: 06/08 17:07 Chief complaint: Patient states: Intermittent fast HR for 1 day (HR 120-135 per her ll1 apple watch) with dizziness. Coronavirus screen: Vaccine status: Patient reports receiving the 2nd dose of the covid vaccine. Client denies travel out of the [place] in the last 14 days. At this time, the client does not indicate any symptoms associated with coronavirus-19. Ebola Screen: Patient denies travel to an Ebola-affected area in the 21 days before illness onset. Initial Sepsis Screen: Does the patient meet any 2 criteria? HR > 90 bpm. No. Patient's initial sepsis screen is negative. Risk Assessment: Do you want to hurt yourself or someone else? Patient reports no desire to harm self or others. Onset of symptoms was June 08, 2021. 17:07 Method Of Arrival: Ambulatory ll1 17:07 Acuity: JULISSA 3 ll1 Triage Assessment: 17:10 General: Appears in no apparent distress. Behavior is calm, cooperative, appropriate ll1 for age. Pain: Denies pain. Cardiovascular: Reports since fast HR Capillary refill < 3 seconds Clubbing of nail beds is absent Patient's skin is warm and dry. Historical: - Allergies: 17:10 No Known Allergies; ll1 - PMHx: 17:09 Diabetes - NIDDM; Hyperlipidemia; Hypertension; ll1 17:09 gastroparesis; ll1 - PSHx: 17:09 Cholecystectomy; ll1 - Immunization history:: Client reports receiving the 2nd dose of the Covid vaccine, Flu vaccine is up to date. - Social history:: Smoking status: Patient denies any tobacco usage or history of. Vital Signs: 17:07 BP 176 / 96; Pulse 122; Resp 17; Temp 98.4; Pulse Ox 99% ; Weight 73.94 kg; Height 5 ll1 ft. 8 in. (172.72 cm); Pain 0/10; 18:54 BP 169 / 99; Pulse 114; Resp 16; Pulse Ox 98% ; ll1 17:07 Body Mass Index 24.78 (73.94 kg, 172.72 cm) 1 ED Course: 16:31 Patient arrived in ED. mr 17:09 Triage completed. ll1 17:18 Arm band placed on. EKG completed in triage. Results shown to MD. arreola Administered Medications: No medications were administered Outcome: 19:38 Patient left the ED. vc1 Signatures: Nicole Gardner mr Alina Fan RN RN ll1 Tatianna Lowe RN RN vc1
[2021-06-08 19:55] VITALS: TEMP 98.4
[2021-06-08 19:58] VITALS: BP 169/99; O2SAT 98
== END 2021-06-08 19:38 | disposition left against medical advice (07) ==
LOC: ER 16:28
DX: Z53.21 Procedure and treatment not carried out due to patient leaving prior to being seen by health care provider (principal)
CPT/HCPCS: 93005; 99281